=== PATIENT | female | born 2000 | race Caucasian/White ===

== ENCOUNTER 2021-01-20 20:14 | Emergency (ER) | payer MEDICAID ==
--- NOTE | 2021-01-20 20:17 | ERPHSYRPT ---
- History of Present Illness Time Seen by Provider: 01/20/21 20:17 Source: patient - Departure Referrals: MILLY FIELD [Primary Care Provider] -
[2021-01-20 20:54] VITALS: O2SAT 98
--- NOTE | 2021-01-20 21:16 | ERPHSYRPT ---
- History of Present Illness Time Seen by Provider: 01/20/21 20:17 Source: patient, family Exam Limitations: no limitations Patient Subjective Stated Complaint: "I think I might be and also I think I have pneumonia." Triage Nursing Assessment: Patient reported concerns for possibly being and having pneumonia. She reported her last period being in september stopping her control in october. She has had multiple negative home tests. Denied pain at this time. Reported ongoing shortness of breath for the past month. has a history of asthma. Has been homeless for one month. Symmetrical chest expansion. heart tones S1/S2 regular rate and rhythm. Lungs vesicular with adequate airflow thoughout A/P vyas. Peripheral pulses +3 bilateral. Physician History: This is a 20-year-old white female who states that she stopped taking her control in October 2020. She has not had a menstrual period in 2 months. She has taken multiple tests and they all were negative. The most recent negative test was today. She also has been coughing intermittently for a month. Patient is homeless and recently moved in with a grandparent. Patient continues to smoke cigarettes. Timing/Duration: intermittent Cough Quality/Degree: mild Possible Cause: occasional episodes Modifying Factors: Improves With: coughing Associated Symptoms: cough Allergies/Adverse Reactions: No Known Drug Allergies Allergy (Unverified 01/20/21 20:41) Hx Tetanus, Diphtheria Vaccination/Date Given: Yes Hx Influenza Vaccination/Date Given: No Travel Risk - International Travel Have you traveled outside of the country in past 3 weeks: No - Coronavirus Screening Are you exhibiting any of the following symptoms?: Yes Symptoms: Shortness of Breath Close contact with a COVID-19 positive Pt in past 14-21 Days: No - Vaccine Status Have you recieved a Covid-19 vaccination: No - Review of Systems Constitutional: No Symptoms Eyes: No Symptoms Ears, Nose, & Throat: No Symptoms Respiratory: Cough Cardiac: No Symptoms Abdominal/Gastrointestinal: No Symptoms Genitourinary Symptoms: No Symptoms Musculoskeletal: No Symptoms Skin: No Symptoms Neurological: No Symptoms Psychological: No Symptoms Endocrine: No Symptoms Hematologic/Lymphatic: No Symptoms Immunological/Allergic: No Symptoms All Other Systems: Reviewed and Negative - Past Medical History Pertinent Past Medical History: Yes Cardiac History: No Pertinent History Respiratory History: Asthma GI Medical History: No Pertinent History History: No Pertinent History Psycho-Social History: Depression Female Reproductive Disorders: No Pertinent History - Past Surgical History Past Surgical History: Yes Other Surgical History: left arm surgery for nerve damage - Social History Smoking Status: Current every day smoker Exposure to second hand smoke: No Drug Use: marijuana Patient Lives Alone: No - Female History Hx Last Menstrual Period: September Hx Now: No - Nursing Vital Signs Nursing Vital Signs: Initial Vital Signs Pulse Rate 79 01/20/21 20:15 Respiratory Rate 18 01/20/21 20:15 Blood Pressure 101/74 01/20/21 20:15 O2 Sat by Pulse Oximetry 98 01/20/21 20:15 Pain Scale Pain Intensity 0 - Physical Exam General Appearance: no apparent distress, alert, anxiety Eye Exam: PERRL/EOMI, eyes nml inspection Ears, Nose, Throat Exam: normal ENT inspection, moist mucous membranes Neck Exam: normal inspection, non-tender, supple, full range of motion Respiratory Exam: normal breath sounds, lungs clear, airway intact, No chest tenderness, No respiratory distress Cardiovascular Exam: regular rate/rhythm, normal heart sounds, normal peripheral pulses Gastrointestinal/Abdomen Exam: soft, normal bowel sounds, No tenderness Pelvic Exam: not done Rectal Exam: not done Back Exam: normal inspection, normal range of motion, No CVA tenderness, No vertebral tenderness Extremity Exam: normal inspection, normal range of motion, pelvis stable Neurologic Exam: alert, oriented x 3, cooperative, 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 No obvious infiltrate present. Blood Culture(s) Obtained: No Antibiotics given: Yes Counseled pt/family regarding: diagnosis, need for follow-up, rad results - Departure Departure Disposition: Home Clinical Impression: Bronchitis Condition: Stable Critical Care Time: No Referrals: MILLY FIELD [Primary Care Provider] - Additional Instructions: Stop smoking. Avoid exposure to smoke. Drink plenty of fluids. 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 Prescriptions: Cephalexin Mh 500 mg [Keflex 500 mg] 500 mg PO TID #21 capsule Albuterol 8 gm Mdi Hfa [Ventolin Hfa MDI] 8 gm IH Q4H #1 [id number]
[2021-01-20] MEDS ORDERED: KEFLEX 500 MG PO ONE (21:19)
[2021-01-20] MEDS ORDERED: KEFLEX 500 MG ONE (21:22)
[2021-01-20 22:06] VITALS: BP 106/78; PULSE 74
--- NOTE | 2021-01-21 07:23 | XRAY ---
Indication: Cough. Pneumonia. Comparison: None Portable chest demonstrates subtle right infrahilar infiltrate versus atelectasis. Remaining heart and lungs unremarkable. Bony thorax intact with minimal scoliosis and surgical clips overlying left shoulder. Comment: Right infiltrate/atelectasis not reported by interpreting ER clinician. Telephone report given to Dr. Serrano in the ER at 0717 hrs. on January 21, 2021
== END 2021-01-20 21:20 | disposition home or self-care (01) ==
LOC: ED 20:14
DX: J40 Bronchitis, not specified as acute or chronic (principal); R05 Cough
CPT/HCPCS: 71045; 99283; A9270-GY